=== PATIENT | male | born 1990 | race Two or more races ===

== ENCOUNTER 2021-11-28 11:47 | Emergency (ER) | payer OTHER ==
[2021-11-28 12:52] LABS: HEMOGLOBIN 14.7 gm/dl (14.0-17.5); RED BLOOD COUNT 4.49 M/UL (4.20-5.50); WHITE BLOOD COUNT 9.7 K/UL (4.5-11.0)
[2021-11-28 13:15] LABS: BUN/CREATININE RATIO 16 (0-10)
[2021-11-28] MEDS ORDERED: ZOFRAN ODT 4 MG4 MG SL (15:29)
[2021-11-28] MEDS ORDERED: FLOMAX 0.4 MG0.4 MG PO (15:29)
[2021-11-28] MEDS ORDERED: HYDROCODON-ACE1 EAC4 PO (15:29)
[2021-11-29] MEDS ORDERED: TORADOL 10 MG T10 MG PO (13:07)
== END 2021-11-28 16:10 | disposition home or self-care (01) ==
LOC: ER1 11:47
PROVIDERS: Emergency Medicine
DX: N13.2 Hydronephrosis with renal and ureteral calculous obstruction (principal)
CPT/HCPCS: 80053; 81001; 82962; 85025; 93005; 96361; 96374; 96375; 96376; 99284; J1170; J2405

== ENCOUNTER 2021-11-29 10:52 | Emergency (ER) | payer OTHER ==
[~2021-11-29 10:52] MED LIST: FLOMAX 0.4 MG0.4 MG PO; HYDROCODON-ACE1 EAC4 PO; ZOFRAN ODT 4 MG4 MG SL
[2021-11-29 12:28] LABS: BUN/CREATININE RATIO 17 (0-10)
[2021-11-29 12:53] LABS: HEMOGLOBIN 14.3 gm/dl (14.0-17.5); RED BLOOD COUNT 4.33 M/UL (4.20-5.50); WHITE BLOOD COUNT 9.7 K/UL (4.5-11.0)
[2021-11-29] MEDS ORDERED: TORADOL 10 MG T10 MG PO (13:07)
== END 2021-11-29 13:30 | disposition home or self-care (01) ==
LOC: ER1 10:52
PROVIDERS: Physician Assistant
DX: N20.1 Calculus of ureter (principal); R51.9 Headache, unspecified; E11.9 Type 2 diabetes mellitus without complications; I10 Essential (primary) hypertension
CPT/HCPCS: 80053; 81001; 85025; 99284